=== PATIENT | female | born 1980 | race Caucasian/White ===

== ENCOUNTER → 2023-07-09 16:36 | Outpatient (REF) | payer MEDICARE, OTHER, SELFPAY | LOC: RAD 16:36 | PROVIDERS: ATTENDING PHYSICIAN Nurse Practitioner Family; FAMILY PHYSICIAN Internal Medicine | DX: R19.7 Diarrhea, unspecified (principal) | CPT/HCPCS: 74018 ==

== ENCOUNTER → 2023-08-07 06:29 | Day surgery (SDC) | payer MEDICARE, OTHER, SELFPAY | LOC: GI 06:29 | PROVIDERS: ATTENDING PHYSICIAN Internal Medicine Gastroenterology | DX: R19.7 Diarrhea, unspecified (principal); G89.29 Other chronic pain; K64.8 Other hemorrhoids; K62.3 Rectal prolapse; K52.831 Collagenous colitis | CPT/HCPCS: 45380; 88305; 88313 ==

== ENCOUNTER 2024-06-17 06:02 | Inpatient (IN) | payer MEDICARE, OTHER, SELFPAY ==
[2024-06-02 11:20] LABS: Hematocrit 39.9 % (37.0-47.0); Hemoglobin 13.7 g/dL (12.0-16.0); Mean Corp Hgb Conc. 34.3 g/dL (33.0-37.0); Mean Corpuscular Hgb 29.6 pg (27.0-31.0); Mean Corpuscular Volume 86.2 fL (81.0-99.0); Mean Platelet Volume 10.3 fL (7.4-10.4); Platelet Count 274 10^3/uL (130-400); Red Blood Cell Count 4.63 10^6/uL (4.20-5.40); Red Cell Dist. Width 13.3 % (11.5-14.5); White Blood Cell Count 7.4 10^3/uL (4.8-10.8)
[2024-06-02 11:31] LABS: APTT 28.8 Sec (23.4-35.0); INR 0.91; PT 12.8 Sec (11.4-14.6)
[2024-06-02 12:31] LABS: Glycohemoglobin (HgbA1c) 5.8 % (4.0-5.6)
[2024-06-02 13:45] VITALS: BMI 33.3
[2024-06-02 15:04] LABS: ALT (SGPT) 21 U/L (0-35); AST (SGOT) 28 U/L (14-36); Albumin 4.7 g/dl (3.5-5.0); Alkaline Phosphatase 71 U/L (38-126); Blood Urea Nitrogen 8 mg/dl (7-17); Calcium 9.1 mg/dl (8.4-10.2); Carbon Dioxide 25 mmol/L (22-30); Chloride 100 mmol/L (98-107); Estimated Creatinine Clearance 91 ml/min; Glucose 94 mg/dl (70-99); Sodium 139 mmol/L (135-145); Total Bilirubin 0.6 mg/dl (0.2-1.3); Total Protein 6.8 g/dl (6.3-8.2); eGFR > 60.00
[2024-06-17] VITALS (17 sets, daily range): BP systolic 136–178; BP diastolic 88–119; BMI 33.3
[2024-06-17] MEDS: HEPARIN 5000 UNITS SC (06:45)
[2024-06-17] MEDS: TYLENOL 1000 MG PO (06:45)
--- NOTE | 2024-06-17 10:44 | W.IMMPOSTOP ---
Surgical Immed Post Op Note
-
Primary Surgeon: Karlo Aguilar MD
Director It Project: INDIANA Dorado
Pre-op Diagnosis: Recurrent rectal prolapse
Post-op Diagnosis: Same
Procedure Performed: Robotic ventral mesh rectopexy
Anesthesia Type: GET
Specimen / Cultures: None
Estimated Blood Loss: 10cc
Complications: None
Operative Findings: Rectal prolapse
10 x 3 cm Phasix mesh
Normal flex sig at completion
Patient's boyfriend, Lesley, updated.
[2024-06-17] MEDS: SUBLIMAZE 50 MCG IV ×2 (11:31→11:47)
[2024-06-17] MEDS: TORADOL 15 MG IV ×2 (11:46→17:15)
--- NOTE | 2024-06-17 12:42 | PTCARENOTE ---
Patient admitted from PACU post robotic mesh rectopexy .She reports her pain at an 8 out of 10. Patient received pain medication in PACU both Fentanyl and Toradol.She suffers with chronic pain. Vital signs are stable.All 5 laparoscopic sites are
intact without any drainage.The patient is anxious asking how long she will be alone.I explained to her all she needs to do is use her call tanner which is in reach.The patient is in her bed.
[2024-06-17] MEDS: TYLENOL PO ×2 (15:20→15:25)
[2024-06-17] MEDS: NORMOSOL-R/PLASMALYTE-A 1000 IV ×2 (15:22→15:58)
[2024-06-17] MEDS: DILAUDID 1 MG IV (15:25)
[2024-06-17] MEDS: ADDERALL 20 MG PO (17:15)
[2024-06-17] MEDS: ZOFRAN 4 MG IV (17:16)
[2024-06-17] MEDS: TYLENOL 650 MG PO (20:47)
[2024-06-17] MEDS: ABILIFY 15 MG PO (22:37)
[2024-06-17] MEDS: LUVOX 200 MG PO (22:37)
[2024-06-17] MEDS: ADDERALL PO (22:55)
--- NOTE | 2024-06-18 | PTCARENOTE ---
Pt BP running high. Pt not symptomatic. MATRI Cheema notified and came to floor to assess pt and advised to continue to monitor.
[2024-06-18] MEDS: TYLENOL 650 MG PO ×4 (00:31→21:43)
[2024-06-18] MEDS: TORADOL 15 MG IV ×4 (00:31→16:58)
[2024-06-18] MEDS: ZOFRAN 4 MG IV ×2 (00:59→10:11)
[2024-06-18] MEDS: NORMOSOL-R/PLASMALYTE-A 1000 IV (01:53)
[2024-06-18 03:38] VITALS: BP 178/118
[2024-06-18] MEDS: TYLENOL PO ×2 (04:44→11:46)
[2024-06-18 06:00] VITALS: BMI 33.5
[2024-06-18 06:22] LABS: % Basophils 0.1 % (0-2); % Immature Granulocytes 0.4 % (0-0.5); % Lymphocytes 7.6 % (20.5-51.1); % Neutrophils 87.9 % (42.2-75.2); Absolute Lymphocytes 0.8 10^3/uL (1.2-3.4); Absolute Monocytes 0.4 10^3/uL (0.1-0.6); Absolute Neutrophils 9.5 10^3/uL (1.4-6.5); Hematocrit 38.4 % (37.0-47.0); Hemoglobin 13.7 g/dL (12.0-16.0); Mean Corp Hgb Conc. 35.7 g/dL (33.0-37.0); Mean Platelet Volume 10.4 fL (7.4-10.4); Nucleated Red Blood Cells % 0 %; Platelet Count 287 10^3/uL (130-400); Red Blood Cell Count 4.57 10^6/uL (4.20-5.40); Red Cell Dist. Width 12.6 % (11.5-14.5); White Blood Cell Count 10.8 10^3/uL (4.8-10.8)
[2024-06-18 06:41] LABS: Blood Urea Nitrogen 10 mg/dl (7-17); Calcium 8.7 mg/dl (8.4-10.2); Carbon Dioxide 25 mmol/L (22-30); Chloride 97 mmol/L (98-107); Estimated Creatinine Clearance 117 ml/min; Glucose 164 mg/dl (70-99); Potassium 4.1 mmol/L (3.5-5.1); Sodium 133 mmol/L (135-145); eGFR > 60.00
[2024-06-18 08:05] VITALS: BP 160/99
[2024-06-18] MEDS: PROTONIX 40 MG PO (09:56)
[2024-06-18] MEDS: ADDERALL 20 MG PO ×2 (09:56→16:55)
[2024-06-18] MEDS: NORMOSOL-R/PLASMALYTE-A IV ×2 (09:56→16:56)
[2024-06-18] MEDS: LUVOX 100 MG PO (09:56)
--- NOTE | 2024-06-18 10:04 | W.PN.CRS1 ---
Today's Communication / Plan
-
Regular diet
DC Bass
Possible discharge later today
Assessment/Plan
-
POD#1 Robotic ventral mesh rectopexy
-Labs and vitals normal
-Regular diet
-DC IV fluids and tolerating a diet
-Discontinue Bass
-Lovenox for DVT prophylaxis. Teds and SCDs in place.
-Pain control: Tylenol and Toradol standing, Dilaudid as needed
-Possible discharge later today if tolerating diet. Discussed with patient. Will check in later.
Subjective Data
Procedure
06/17/24- Robotic ventral mesh rectopexy
Subjective Data
Date of Service: June 18, 2024
Patient states she is nauseous. She denies vomiting. She is not having gas or bowel movement yet. She is in a some pain this morning.
Objective Data
-
Vital Signs
Temp Pulse Resp BP Pulse Ox
98.6 F 84 16 160/99 95
06/18/24 08:05 06/18/24 08:05 06/18/24 08:05 06/18/24 08:05 06/18/24 08:05
Intake & Output
06/17/24 06/18/24 06/19/24
06:59 06:59 06:59
Intake Total 4650 / 4650 490 / 490
Output Total 4200 / 4200
Balance 450 / 450 490 / 490
Intake:
Oral fluids 2400 / 2400 240 / 240
IV fluids (Total) 2250 / 2250 250 / 250
Normosal 400 / 400
Output:
Urine, Bass 4200 / 4200
Lab Results
06/18/24 05:53
06/18/24 05:53
Physical Exam
-
General: No Acute Distress and AOx3
Abdomen: Soft, Non Distended and Non Tender
Skin: Warm and Dry
Incision: Clear, Dry, Intact
--- NOTE | 2024-06-18 10:13 | CM ---
Addendum entered by Kia Kenyon RN 06/18/24 15:53:
IMM reviewed.
Original Note:
Reviewed the chart notes and spoke with the patient at the bedside. The patient resides with her mother in a two story home with a flight of steps plus three to enter. The patient reports no DME/VN/SNF in the past. The patient confirmed her
pharmacy of choice is the [facility]. CM continues to be available to patient/family and is monitoring medical plan for needs at discharge.
Plan: Discharge to home when medically stable. No needs anticipated at this time.
[2024-06-18 11:20] VITALS: BP 180/127
--- NOTE | 2024-06-18 12:00 | PTCARENOTE ---
Updated PA in regards to patients hypertension, continued nausea and inability to eat breakfast through tiger text
--- NOTE | 2024-06-18 14:34 | PTCARENOTE ---
Patient still feeling nauseous and was not able to eat breakfast or lunch. IV zofran not working, but IV compazine has been ordered. Pt refusing to go back on IVF. PA made aware
[2024-06-18] MEDS: ROXICODONE 10 MG PO ×2 (14:37→19:45)
[2024-06-18 15:40] VITALS: BP 172/112
[2024-06-18] MEDS: LOVENOX 40 MG SC (16:57)
[2024-06-18] MEDS: ABILIFY 15 MG PO (21:43)
[2024-06-18] MEDS: LUVOX 200 MG PO (21:43)
[2024-06-18] MEDS: ADDERALL PO (21:49)
[2024-06-18] MEDS: TORADOL IV (22:43)
[2024-06-18 23:00] VITALS: BP 143/100
[2024-06-19] MEDS: TYLENOL PO ×3 (00:05→04:49)
[2024-06-19] MEDS: TUMS CHEWABLE TABLET 200 MG PO (04:47)
[2024-06-19] MEDS: TORADOL IV ×2 (04:56→12:39)
[2024-06-19 06:00] VITALS: BMI 32.0
[2024-06-19] MEDS: TYLENOL 650 MG PO ×3 (08:17→16:19)
[2024-06-19] MEDS: ATIVAN 1 MG PO (08:18)
[2024-06-19] MEDS: PROTONIX 40 MG PO (08:18)
[2024-06-19] MEDS: ADDERALL 20 MG PO ×2 (08:19→16:19)
[2024-06-19] MEDS: LUVOX 100 MG PO (08:19)
[2024-06-19 08:36] VITALS: BP 165/100
[2024-06-19 09:35] LABS: % Basophils 0.1 % (0-2); % Immature Granulocytes 0.4 % (0-0.5); % Neutrophils 70.5 % (42.2-75.2); Absolute Monocytes 0.6 10^3/uL (0.1-0.6); Absolute Neutrophils 6.4 10^3/uL (1.4-6.5); Hematocrit 41.7 % (37.0-47.0); Hemoglobin 14.3 g/dL (12.0-16.0); Mean Corp Hgb Conc. 34.3 g/dL (33.0-37.0); Mean Corpuscular Volume 84.6 fL (81.0-99.0); Mean Platelet Volume 10.2 fL (7.4-10.4); Nucleated Red Blood Cells % 0 %; Platelet Count 287 10^3/uL (130-400); Red Blood Cell Count 4.93 10^6/uL (4.20-5.40); Red Cell Dist. Width 12.7 % (11.5-14.5); White Blood Cell Count 9.1 10^3/uL (4.8-10.8)
[2024-06-19 09:52] LABS: Blood Urea Nitrogen 9 mg/dl (7-17); Calcium 9.2 mg/dl (8.4-10.2); Carbon Dioxide 28 mmol/L (22-30); Chloride 97 mmol/L (98-107); Estimated Creatinine Clearance 100 ml/min; Glucose 111 mg/dl (70-99); Potassium 3.9 mmol/L (3.5-5.1); Sodium 134 mmol/L (135-145); eGFR > 60.00
--- NOTE | 2024-06-19 12:41 | W.PN.CRS1 ---
Today's Communication / Plan
-
[facility].
Hospitalist consult.
Assessment/Plan
-
POD 1.
1. tolerated clears. Go to [facility].
2. vitals/labs fine.
3. elevated BP. Hospitalist consult put in.
4. anticipating discharge today or tomorrow.
Subjective Data
Procedure
06/17/24- Robotic ventral mesh rectopexy
Subjective Data
Date of Service: June 19, 2024
Nausea earlier is gone.
Tolerated clears.
Objective Data
-
Vital Signs
Temp Pulse Resp BP Pulse Ox
98 F 85 18 165/100 98
06/19/24 08:36 06/19/24 08:36 06/19/24 08:36 06/19/24 08:36 06/19/24 08:36
Intake & Output
06/18/24 06/19/24 06/20/24
06:59 06:59 06:59
Intake Total 4650 / 4650 4290 / 4290
Output Total 4200 / 4200 1000 / 1000
Balance 450 / 450 3290 / 3290
Intake:
Oral fluids 2400 / 2400 4040 / 4040
IV fluids (Total) 2250 / 2250 250 / 250
Normosal 400 / 400
Output:
Urine, Bass 4200 / 4200 1000 / 1000
Other:
Number of approximated SMALL 3
amounts of urine
Number of approximated MODERATE 2
amounts of urine
Number of approximated LARGE 1
amounts of urine
Lab Results
06/19/24 09:24
06/19/24 09:24
Physical Exam
-
General: No Acute Distress
Chest: Clear
Cardiovascular: Regular Rate & Rhythm
Abdomen: Distended (mild) and Tender (mild incisional)
Incision: Clear, Dry, Intact and No Skin Erythema
--- NOTE | 2024-06-19 12:42 | CON.HOSP ---
Addendum entered and electronically signed by Andrew Kwong MD 06/19/24 16:00:
BP improved since 5 mg Amlodipine start, 132/100 down from 165/120
Patient reports ambulating without issues denies lightheadedness dizziness.
EKG done due to concerns palpitations noted S1Q3T3 and RBBB however these findings are noted knew present October 2020 when patient has had neg CT chest PE study
Stable respiratory status on room air. Patient eager to go home.
Ok from hospitalist perspective to go home. Recommend:
-continuing Amlodipine 5 mg daily
-keeping a daily log of blood pressures at home (patient reports having a portable bp machine at home that she can use)
-reviewing log with primary care provider in 1 week follow up for further evaluation/treatment hypertension
-patient is also recommended to bring her BP machine in follow up to compare her readings with readings obtained in pcp office.
Original Note:
Family Physician
-
Family Physician: Eloy Huynh
Chief Complaint
-
Hypertensive Urgency
History of Present Illness
43F GERD Obesity IBS Fibromyalgia chronic back pain anxiety depression OCD here for rectal prolapsy s/p ventral rectopexy. Hospital stay notable for hypertensive urgency, patient denies hx hypertension denies ever being on bp medications before. In
no acute distress, sitting up comfortably in bed. Denies headache lightheadedness. Reports pain well controlled at this time. Also reports some anxiety with regards to her high blood pressure- had taken her prn ativan earlier thinking it would
help but no significant improvement in BP was noted. Hospitalist consulted for BP evaluation/treatment.
Medical History
Allergies / Home Medications
Allergies reflects when Allergies were last updated in [employer].
Home Medications with original date entered in [employer]
Allergy/Medication List:
Allergies
Allergy/AdvReac Type Severity Reaction Status Date / Time
gabapentin Allergy numbness Verified 06/17/24 06:27
of
fingertip
nortriptyline Allergy elevated Verified 06/17/24 06:27
blood
pressure
prednisone [Prednisone] Allergy psychosis Verified 06/17/24 06:27
Home Medications
Adderall 5 Mg Tablet 20 mg PO TID 06/30/08
Norethindrone 5 mg PO DAILY 06/30/08
esomeprazole magnesium 40 mg granules delayed release for susp (Nexium Packet) 40 mg PO DAILY 06/30/08
fluvoxamine 50 mg tablet 100 mg PO DAILY 01/14/09
Pre Biotic 1 dose PO DAILY 06/10/24
Pro Biotic 1 dose PO DAILY 06/10/24
aripiprazole 15 mg tablet (Abilify) 15 mg PO HS 06/10/24
fluticasone propionate 50 mcg/actuation nasal spray,suspension 2 spray intranasal DAILY 06/10/24
fluvoxamine 100 mg tablet 200 mg PO HS 06/10/24
lorazepam 1 mg tablet 1 mg PO DAILY PRN anxiety 06/10/24
multivitamin 1 tab PO DAILY 06/10/24
oxycodone-acetaminophen 10 mg-325 mg tablet (Percocet) 1 tab PO QID PRN pain 06/10/24
polyethylene glycol 3350 17 gram oral powder packet (Miralax) 17 g PO DAILY 06/10/24
Physical Exam
Vital Signs
Vital Signs
Temp Pulse Resp BP Pulse Ox
98 F 85 18 165/100 98
06/19/24 08:36 06/19/24 08:36 06/19/24 08:36 06/19/24 08:36 06/19/24 08:36
Laboratory Results
-
Laboratory Results
06/19/24 09:24
06/19/24 09:24
PT 12.8 Sec (11.4-14.6) 06/02/24 08:50
INR 0.91 06/02/24 08:50
APTT 28.8 Sec (23.4-35.0) 06/02/24 08:50
Total Bilirubin 0.6 mg/dl (0.2-1.3) 06/02/24 08:50
AST 28 U/L (14-36) 06/02/24 08:50
ALT 21 U/L (0-35) 06/02/24 08:50
Alkaline Phosphatase 71 U/L (38-126) 06/02/24 08:50
Impression / Plan
-
ROS
General: Denies fever chills night sweats unexpected weight loss
Neuro: Denies seizure shaking loss of consciousness dizziness vertigo
Psych: denies depression hallucinations confusion manic episodes
Endocrine: Denies polyuria polydipsia polyphagia heat/cold intolerance
HEENT: Denies blindness visual disturbances epistaxis
Pulmonary: denies coughing hemoptysis sneezing sob dyspnea on exertion
Cardiovascular: reports palpitations denies chest pain leg swelling
Hematology: denies signs symptoms of anemia easy bruising/bleeding
Gastrointestinal: denies nausea vomiting diarrhea constipation hematemesis hematochezia melena
Genito-Urinary: denies retention incontinence dysuria
Musculoskeletal: denies joint pain weakness
Dermatology: denies rash laceration bruising
Physical Exam
General: No pallor, cyanosis, or jaundice.
HEENT: Throat clear. PERRLA Normocephalic atraumatic
NECK: Supple. No JVD Carotid Bruits
RESPIRATORY: Lungs clear to auscultation. No crackles wheezes stridor
CVS: S1, S2 sinus tachy. No murmur, rub or gallop.
ABDOMEN: Soft, non-tender. No distension. BS+/normal.
EXTREMITIES: No peripheral cyanosis or edema.
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
IMPRESSION:
43F GERD Obesity IBS Fibromyalgia chronic back pain ADHD anxiety depression OCD here for rectal prolapsy s/p ventral rectopexy. Hospital stay notable for hypertensive urgency, patient denies hx hypertension denies ever being on bp medications
before. Relatively asymptomatic with regards to high blood pressure, denies headache lightheadedness blurry vision nausea. Hospitalist consulted for BP evaluation/treatment.
PLAN:
#Rectal Prolapse s/p ventral rectopexy
Post-op mgmt pain control as per CRS primary
#HTN
#palpitations, mild sinus tachy
check EKG
start amlodipine 5 mg daily with holding parameters SBP<140
trend bp
Potentially may be discharge later today if BP improves, outpt follow up with pcp for further evaluation/work up/treatment hypertension
Would hold discharge till morning for further BP mgmt if no improvement noted
ADHD
Anxiety
Depression OCD
Fibromyalgia
cont home Adderall Abilify Fluvoxamine prn ativan
DVT ppx SCD
Full Code
discussed with patient, RN, and CRS
I spent a total of 75 minutes with the patient or on the floor. More than 50% of this time involved counseling and coordination of care.
[2024-06-19] MEDS: NORVASC 5 MG PO (12:48)
[2024-06-19 14:44] VITALS: BP 132/100
[2024-06-19] MEDS: ROXICODONE 10 MG PO (16:18)
[2024-06-19 17:44] VITALS: BP 130/90
== END 2024-06-19 18:30 | disposition home or self-care (01) | DRG 331 ==
LOC: 2 SOUTH 06:02
PROVIDERS: Physician Assistant; ADMITTING PHYSICIAN Surgery; CONSULT PHYSICIAN Internal Medicine; FAMILY PHYSICIAN Internal Medicine
PROC: 0DSP0ZZ Reposition Rectum, Open Approach (ICD-10-PCS; 2024-06-17)
PROC: 0DU Gastrointestinal System, Supplement (ICD-10-PCS; 2024-06-17)
PROC: 8E0W0CZ Robotic Assisted Procedure of Trunk Region, Open Approach (ICD-10-PCS; 2024-06-17)
DX: K62.3 Rectal prolapse (principal); I16.0 Hypertensive urgency; I10 Essential (primary) hypertension; F90.9 Attention-deficit hyperactivity disorder, unspecified type; F41.9 Anxiety disorder, unspecified; F42.9 Obsessive-compulsive disorder, unspecified; M79.7 Fibromyalgia; F32.A Depression, unspecified; K21.9 Gastro-esophageal reflux disease without esophagitis; K58.9 Irritable bowel syndrome, unspecified; E66.9 Obesity, unspecified; Z68.32 Body mass index [BMI] 32.0-32.9, adult
CPT/HCPCS: 36415; 80048; 80053; 83036; 85025; 85027; 85610; 85730; 86850; 86900; 86901; 93005; C1781; J1335

== ENCOUNTER → 2024-06-30 19:17 | Outpatient (REF) | payer MEDICARE, OTHER, SELFPAY | LOC: MRI 19:17 | PROVIDERS: ATTENDING PHYSICIAN Physician Assistant Medical; FAMILY PHYSICIAN Internal Medicine | DX: M54.16 Radiculopathy, lumbar region (principal) | CPT/HCPCS: 72148 ==

== ENCOUNTER → 2024-07-01 16:10 | Outpatient (REF) | payer MEDICARE, OTHER, SELFPAY | LOC: HWRAD 16:10 | PROVIDERS: ATTENDING PHYSICIAN Surgery; FAMILY PHYSICIAN Internal Medicine | DX: K59.00 Constipation, unspecified (principal) | CPT/HCPCS: 74019 ==

== ENCOUNTER 2024-10-06 06:28 | Inpatient (IN) | payer MEDICARE, OTHER, SELFPAY ==
[2024-09-24 11:08] LABS: Hematocrit 37.8 % (37.0-47.0); Hemoglobin 12.9 g/dL (12.0-16.0); Mean Corp Hgb Conc. 34.1 g/dL (33.0-37.0); Mean Corpuscular Hgb 29.9 pg (27.0-31.0); Mean Corpuscular Volume 87.7 fL (81.0-99.0); Mean Platelet Volume 9.8 fL (7.4-10.4); Platelet Count 325 10^3/uL (130-400); Red Blood Cell Count 4.31 10^6/uL (4.20-5.40); Red Cell Dist. Width 13.2 % (11.5-14.5); White Blood Cell Count 9.6 10^3/uL (4.8-10.8)
[2024-09-24 11:28] LABS: ALT (SGPT) 26 U/L (0-35); AST (SGOT) 22 U/L (14-36); Albumin 4.2 g/dl (3.5-5.0); Alkaline Phosphatase 64 U/L (38-126); Blood Urea Nitrogen 7 mg/dl (7-17); Calcium 9.3 mg/dl (8.4-10.2); Carbon Dioxide 30 mmol/L (22-30); Chloride 109 mmol/L (98-107); Glucose 104 mg/dl (70-99); Potassium 4.4 mmol/L (3.5-5.1); Sodium 143 mmol/L (135-145); Total Bilirubin 0.2 mg/dl (0.2-1.3); Total Protein 6.8 g/dl (6.3-8.2); eGFR > 60.00
[2024-09-24 12:56] VITALS: BMI 34.8
[2024-10-06] VITALS (20 sets, daily range): BP systolic 141–166; BP diastolic 91–112; BMI 34.8
[2024-10-06] MEDS: NORMOSOL-R/PLASMALYTE-A 1000 IV ×3 (07:39→14:34)
[2024-10-06] MEDS: TYLENOL 1000 MG PO (07:39)
[2024-10-06] MEDS: ENTEREG 12 MG PO (07:39)
[2024-10-06] MEDS: TRANSDERM-SCOP 1 PATCH TRANSDERM (07:57)
--- NOTE | 2024-10-06 11:34 | W.IMMPOSTOP ---
Surgical Immed Post Op Note
-
Primary Surgeon: Karlo Aguilar MD
Egg Grader: IND[place] Dorado
Pre-op Diagnosis: Recurrent rectal prolapse
Post-op Diagnosis: Same
Procedure Performed: Robotic vental mesh rectopexy
Anesthesia Type: GET
Specimen / Cultures:None
Estimated Blood Loss: 15cc
Complications: None
Operative Findings: Previous mesh tore in half (rectal and sacral promontory sutures and mesh intact)
4 x 8 cm Upsylon mesh
Patient's mother updated via telephone.
[2024-10-06 11:48] LABS: Glucose - Point of Care 143 mg/dl (70-99)
[2024-10-06] MEDS: ZOFRAN 4 MG IV (12:05)
[2024-10-06] MEDS: TORADOL 15 MG IV ×3 (12:18→23:18)
[2024-10-06] MEDS: DILAUDID 0.5 MG IV ×2 (12:35→13:37)
[2024-10-06] MEDS: TRANDATE 5 MG IV (13:52)
--- NOTE | 2024-10-06 14:35 | PTCARENOTE ---
Pt arrived to [facility] from PACU in a bed. Pt has locke with yellow urine. 5 lap sites KADEN with glue. Admission questions answered. IVF hung at 80cc/hr. Pt oriented to room and call tanner. Bed locked and in lowest position. Care ongoing.
[2024-10-06] MEDS: ADDERALL PO ×2 (15:46→21:22)
[2024-10-06] MEDS: TYLENOL 650 MG PO ×3 (15:47→23:18)
[2024-10-06] MEDS: ROXICODONE 10 MG PO ×2 (15:59→20:03)
[2024-10-06] MEDS: ZOLOFT 100 MG PO (17:41)
[2024-10-06] MEDS: TYLENOL PO (19:36)
--- NOTE | 2024-10-06 20:10 | PTCARENOTE ---
Pt c/o chills/feeling warm. Temp is 98.2 orally. BP is 157/110. HR 111. MAP 126. Pt is flushed and warm to touch. 10mg Oxy administered at 2002. Devante Arroyo notified and aware. No new orders at this time. Will continue to monitor.
[2024-10-07] MEDS: NORMOSOL-R/PLASMALYTE-A 1000 IV (01:01)
--- NOTE | 2024-10-07 02:06 | PTCARENOTE ---
Pt c/o 9/10 sharp gas pains. Pt ambulated in hallway. Pain improved to a 4/10 with some belching. Care remains ongoing.
--- NOTE | 2024-10-07 03:15 | PTCARENOTE ---
Pt refusing 0300 vitals.
[2024-10-07] MEDS: TYLENOL 650 MG PO ×5 (03:20→23:04)
[2024-10-07] MEDS: TORADOL IV ×2 (05:23→23:01)
--- NOTE | 2024-10-07 06:06 | PTCARENOTE ---
Pt refusing daily weight.
[2024-10-07 06:39] LABS: % Basophils 0.4 % (0-2); % Eosinophils 0.1 % (0-6); % Immature Granulocytes 0.3 % (0-0.5); % Lymphocytes 8.8 % (20.5-51.1); % Monocytes 6.2 % (1.7-9.3); % Neutrophils 84.2 % (42.2-75.2); Absolute Basophils 0.1 10^3/uL (0-0.2); Absolute Immature Granulocytes 0.1 10^3/uL (0-0.05); Absolute Lymphocytes 1.3 10^3/uL (1.2-3.4); Absolute Monocytes 0.9 10^3/uL (0.1-0.6); Absolute Neutrophils 12.4 10^3/uL (1.4-6.5); Hematocrit 36.9 % (37.0-47.0); Mean Corp Hgb Conc. 35.2 g/dL (33.0-37.0); Mean Corpuscular Hgb 30.2 pg (27.0-31.0); Mean Corpuscular Volume 85.8 fL (81.0-99.0); Mean Platelet Volume 10.3 fL (7.4-10.4); Nucleated Red Blood Cells % 0 %; Platelet Count 346 10^3/uL (130-400); Red Cell Dist. Width 12.7 % (11.5-14.5); White Blood Cell Count 14.8 10^3/uL (4.8-10.8)
[2024-10-07 07:01] LABS: Blood Urea Nitrogen 7 mg/dl (7-17); Calcium 8.6 mg/dl (8.4-10.2); Carbon Dioxide 25 mmol/L (22-30); Chloride 108 mmol/L (98-107); Estimated Creatinine Clearance 120 ml/min; Glucose 107 mg/dl (70-99); Potassium 4.1 mmol/L (3.5-5.1); Sodium 140 mmol/L (135-145); eGFR > 60.00
[2024-10-07 07:30] VITALS: BP 165/109
--- NOTE | 2024-10-07 08:48 | W.PN.CRS1 ---
Today's Communication / Plan
-
fulls
lovenox
d/c locke
Assessment/Plan
-
POD#1 Robotic ventral mesh rectopexy
WBC 14.8, Hgb 13.0
HR 90-110's, afebrile
-Tolerating clears. Advance to fulls. D/C IVFs when tolerating po.
-OOB as tolerated
-D/C locke
-Start lovenox tonight for DVT prophylaxis. TEDS/SCDs in place.
-Pain control: Tylenol/Toradol standing, Dilaudid and Oxycodone PRN
-Daily Miralax
-Incentive spirometry q1h while awake
Subjective Data
Procedure
10/06/2024- Robotic ventral mesh rectopexy
Subjective Data
Date of Service: October 07, 2024
Patient states she is feeling 'uncomfortable'. She has some nausea but no vomiting. No flatus or bowel movements yet.
Objective Data
-
Vital Signs
Temp Pulse Resp BP Pulse Ox
97.7 F 88 18 165/109 95
10/07/24 07:30 10/07/24 07:30 10/07/24 07:30 10/07/24 07:30 10/07/24 07:30
Intake & Output
10/06/24 10/07/24 10/08/24
06:59 06:59 06:59
Intake Total 1420 / 1420
Output Total 1350 / 1350
Balance 70 / 70
Intake:
Oral fluids 1170 / 1170
IV fluids (Total) 250 / 250
normosol 250 / 250
Output:
Urine, Locke 1350 / 1350
Lab Results
10/07/24 05:30
10/07/24 05:30
Physical Exam
-
General: No Acute Distress and AOx3
Abdomen: Soft, Non Distended and Tender (around incisions)
Skin: Warm and Dry
[2024-10-07] MEDS: PROTONIX 40 MG PO (09:56)
[2024-10-07] MEDS: MIRALAX 17 GRAMS PO (09:56)
[2024-10-07] MEDS: ADDERALL 20 MG PO ×2 (09:56→16:34)
[2024-10-07] MEDS: ROXICODONE 10 MG PO ×4 (10:01→23:03)
[2024-10-07 11:20] VITALS: BP 130/96
--- NOTE | 2024-10-07 12:05 | CM ---
CM following re: discharge planning.
Reviewed pt's chart, met with pt.
Pt is a 43 year old female, admitted with primary dx of POD 1 robotic VMR.
Pt reports she lives with boyfriend in an apartment second floor of [facility] [address], 3 steps to enter, has no children. 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 No DME, VN or SNF history.
PCP: Duke Huynh
Pharmacy: [facility]
D/C plan: home with anticipated no needs.
CM will follow with discharge plan updates as hospitalization progresses
[2024-10-07] MEDS: TORADOL 15 MG IV ×2 (13:03→18:31)
[2024-10-07] MEDS: NORMOSOL-R/PLASMALYTE-A IV (13:32)
[2024-10-07 15:30] VITALS: BP 152/102
[2024-10-07] MEDS: ZOLOFT 100 MG PO (18:32)
--- NOTE | 2024-10-07 19:30 | PTCARENOTE ---
Pt c/o extreme nausea. Pt asked for compazine. Devante Arroyo TEAM SPORTS SALES ASSOCIATE notified. EKG order obtained and completed. QTC prolonged. 6.25mg benadryl ordered and administered. Pt educated on purpose of EKG and QTc measurement. Pt requesting tums.
Ordered and administered. Instructed pt to walk in hallway to try to move gas. Pt belched while walking. Pt has no complaints of nausea post-walk/tums administration. Care remains ongoing.
[2024-10-07] MEDS: BENADRYL 6.25 MG IV (19:42)
[2024-10-07] MEDS: TYLENOL PO (19:46)
[2024-10-07] MEDS: TUMS CHEWABLE TABLET 200 MG PO (19:57)
[2024-10-07] MEDS: ADDERALL PO (21:10)
[2024-10-07 23:31] VITALS: BP 137/95
[2024-10-08] MEDS: NORMOSOL-R/PLASMALYTE-A IV (02:03)
[2024-10-08] MEDS: TYLENOL PO (03:00)
[2024-10-08] MEDS: TORADOL IV ×2 (05:04→12:45)
[2024-10-08 07:25] VITALS: BMI 34.4
[2024-10-08 07:53] VITALS: BP 140/98
[2024-10-08 08:11] LABS: % Basophils 0.8 % (0-2); % Eosinophils 9.8 % (0-6); % Immature Granulocytes 0.5 % (0-0.5); % Lymphocytes 26.6 % (20.5-51.1); % Monocytes 6.9 % (1.7-9.3); % Neutrophils 55.4 % (42.2-75.2); Absolute Basophils 0.1 10^3/uL (0-0.2); Absolute Immature Granulocytes 0.1 10^3/uL (0-0.05); Absolute Lymphocytes 2.8 10^3/uL (1.2-3.4); Absolute Monocytes 0.7 10^3/uL (0.1-0.6); Absolute Neutrophils 5.8 10^3/uL (1.4-6.5); Hematocrit 37.6 % (37.0-47.0); Mean Corp Hgb Conc. 34.6 g/dL (33.0-37.0); Mean Corpuscular Hgb 29.8 pg (27.0-31.0); Mean Corpuscular Volume 86.2 fL (81.0-99.0); Mean Platelet Volume 10.4 fL (7.4-10.4); Nucleated Red Blood Cells % 0 %; Platelet Count 310 10^3/uL (130-400); Red Blood Cell Count 4.36 10^6/uL (4.20-5.40); Red Cell Dist. Width 12.8 % (11.5-14.5); White Blood Cell Count 10.4 10^3/uL (4.8-10.8)
[2024-10-08 08:58] LABS: Blood Urea Nitrogen 6 mg/dl (7-17); Calcium 9.3 mg/dl (8.4-10.2); Carbon Dioxide 24 mmol/L (22-30); Chloride 109 mmol/L (98-107); Estimated Creatinine Clearance 119 ml/min; Glucose 96 mg/dl (70-99); Potassium 4.2 mmol/L (3.5-5.1); Sodium 141 mmol/L (135-145); eGFR > 60.00
[2024-10-08] MEDS: ROXICODONE 10 MG PO (08:58)
[2024-10-08] MEDS: MIRALAX 17 GRAMS PO (08:59)
[2024-10-08] MEDS: PROTONIX 40 MG PO (09:00)
[2024-10-08] MEDS: TYLENOL 650 MG PO ×2 (09:00→12:45)
[2024-10-08] MEDS: ADDERALL 20 MG PO (09:00)
--- NOTE | 2024-10-08 09:21 | W.PN.CRS1 ---
Today's Communication / Plan
-
discharge
Assessment/Plan
-
POD#2 Robotic ventral mesh rectopexy
WBC 10.4, Hgb 13.0
Vitals normal
-Continue low residue
-OOB as tolerated
-voiding post locke removal
-Lovenox for DVT prophylaxis. TEDS/SCDs in place.
-Pain control: Tylenol/Toradol standing, Dilaudid and Oxycodone PRN
-Daily Miralax
-Incentive spirometry q1h while awake
-Okay for discharge today. All discharge instructions discussed with patient including medications, activity levels, and follow up. All questions addressed.
Subjective Data
Procedure
10/06/2024- Robotic ventral mesh rectopexy
Subjective Data
Date of Service: October 08, 2024
Patient states she is feeling well. She is a little sore, but she has no other complaints. Denies nausea or vomiting. She is tolerating a diet.
Objective Data
-
Vital Signs
Temp Pulse Resp BP Pulse Ox
97.8 F 79 18 140/98 96
10/08/24 07:53 10/08/24 07:53 10/08/24 07:53 10/08/24 07:53 10/08/24 07:53
Intake & Output
10/07/24 10/08/24 10/09/24
06:59 06:59 06:59
Intake Total 1420 / 1420 880 / 880 900 / 900
Output Total 1350 / 1350 450 / 450 500 / 500
Balance 70 / 70 430 / 430 400 / 400
Intake:
Oral fluids 1170 / 1170 880 / 880 600 / 600
IV fluids (Total) 250 / 250 300 / 300
normosol 250 / 250
Output:
Urine, Locke 1350 / 1350 450 / 450
Urine, Voided 500 / 500
Other:
Number of approximated LARGE 1
amounts of urine
Lab Results
10/08/24 07:25
10/08/24 07:25
Physical Exam
-
General: No Acute Distress and AOx3
Abdomen: Soft, Non Distended and Tender (mild around incisions)
Skin: Warm and Dry
--- NOTE | 2024-10-08 10:51 | CM ---
Patient seen at bedside in [address] [place] [address]. Patient stated that she is doing well and plans for discharge today. CM completed IMM and signed form placed on chart. CM will continue to follow for discharge planning needs.
Plan; home with no needs anticipated
[2024-10-08 12:11] VITALS: BP 136/101
== END 2024-10-08 13:02 | disposition home or self-care (01) | DRG 331 ==
LOC: 2 SOUTH 06:28
PROVIDERS: Physician Assistant; ADMITTING PHYSICIAN Surgery; FAMILY PHYSICIAN Internal Medicine
PROC: 0DSP4ZZ Reposition Rectum, Percutaneous Endoscopic Approach (ICD-10-PCS; 2024-10-06)
PROC: 0DUP4JZ Supplement Rectum with Synthetic Substitute, Percutaneous Endoscopic Approach (ICD-10-PCS; 2024-10-06)
PROC: 8E0W4CZ Robotic Assisted Procedure of Trunk Region, Percutaneous Endoscopic Approach (ICD-10-PCS; 2024-10-06)
DX: K62.3 Rectal prolapse (principal)
CPT/HCPCS: 36415; 80048; 80053; 82962; 85025; 85027; 86850; 86900; 86901; 93005; C1763; J1335

== ENCOUNTER → 2025-01-14 14:43 | Outpatient (REF) | payer MEDICARE, OTHER, SELFPAY | LOC: HWWDC 14:43 | PROVIDERS: ATTENDING PHYSICIAN Advanced Practice Midwife; FAMILY PHYSICIAN Internal Medicine | DX: Z12.31 Encounter for screening mammogram for malignant neoplasm of breast (principal) | CPT/HCPCS: 77063; 77067 ==

== ENCOUNTER 2025-03-09 05:47 | Inpatient (IN) | payer MEDICARE, OTHER, SELFPAY ==
[2025-03-01 09:07] LABS: Hematocrit 36.3 % (37.0-47.0); Hemoglobin 12.2 g/dL (12.0-16.0); Mean Corp Hgb Conc. 33.6 g/dL (33.0-37.0); Mean Corpuscular Volume 84.6 fL (81.0-99.0); Platelet Count 251 10^3/uL (130-400); Red Cell Dist. Width 13.1 % (11.5-14.5)
[2025-03-01 09:43] LABS: ALT (SGPT) 18 U/L (0-35); AST (SGOT) 20 U/L (14-36); Albumin 4.4 g/dl (3.5-5.0); Alkaline Phosphatase 58 U/L (38-126); Blood Urea Nitrogen 13 mg/dl (7-17); Calcium 9.5 mg/dl (8.4-10.2); Carbon Dioxide 31 mmol/L (22-30); Chloride 107 mmol/L (98-107); Glucose 96 mg/dl (70-99); Potassium 4.5 mmol/L (3.5-5.1); Sodium 138 mmol/L (135-145); Total Protein 7.1 g/dl (6.3-8.2); eGFR > 60.00
[2025-03-01 13:57] VITALS: BMI 35.6
[2025-03-09] VITALS (37 sets, daily range): BP systolic 121–158; BP diastolic 93–117; BMI 35.6; BMI 35.5
[2025-03-09] MEDS: NORMOSOL-R/PLASMALYTE-A 1000 IV ×2 (06:40→13:39)
--- NOTE | 2025-03-09 10:52 | W.IMMPOSTOP ---
Surgical Immed Post Op Note
-
Primary Surgeon: Karlo Aguilar MD
Urologist: Orville Foreman MD
Assistants: IND[place]NA Dorado and STEPHEN Moya CRNP
Pre-op Diagnosis: Recurrent rectal prolapse
Post-op Diagnosis: Same
Procedure Performed: Cystoscopy with ureteral stents and ICG
Robotic ventral mesh rectopexy and suture rectopexy
Anesthesia Type: GET
Specimen / Cultures: None
Estimated Blood Loss: 14cc
Complications: None
Operative Findings: Recurrent full-thickness rectal prolapse
Normal flexible sigmoidoscopy
Both ureteral stents removed at the completion (intact)
Patient's mother updated via telephone.
[2025-03-09] MEDS: DILAUDID 0.5 MG IV (12:27)
[2025-03-09] MEDS: DILAUDID 0.25 MG IV (12:49)
[2025-03-09] MEDS: TYLENOL 650 MG PO ×2 (14:11→18:19)
[2025-03-09] MEDS: ZOLOFT 200 MG PO (18:19)
[2025-03-09] MEDS: ROXICODONE 10 MG PO (18:21)
[2025-03-09] MEDS: ABILIFY 15 MG PO (18:46)
[2025-03-09] MEDS: ROXICODONE 5 MG PO (19:30)
[2025-03-09] MEDS: ZOFRAN 4 MG IV (21:06)
[2025-03-09] MEDS: ADDERALL PO ×2 (21:06→21:13)
[2025-03-09] MEDS: TUMS CHEWABLE TABLET 200 MG PO (21:33)
[2025-03-09] MEDS: TYLENOL PO (22:26)
[2025-03-10] MEDS: NORMOSOL-R/PLASMALYTE-A 1000 IV (00:27)
[2025-03-10] MEDS: TYLENOL PO ×3 (00:29→15:00)
[2025-03-10 06:00] VITALS: BMI 34.4
[2025-03-10 06:59] LABS: Hematocrit 38.3 % (37.0-47.0); Hemoglobin 13.0 g/dL (12.0-16.0); Mean Corp Hgb Conc. 33.9 g/dL (33.0-37.0); Mean Corpuscular Volume 84.9 fL (81.0-99.0); Nucleated Red Blood Cells % 0 %; Platelet Count 287 10^3/uL (130-400); Red Cell Dist. Width 12.7 % (11.5-14.5)
[2025-03-10 07:14] LABS: Blood Urea Nitrogen 6 mg/dl (7-17); Calcium 9.0 mg/dl (8.4-10.2); Carbon Dioxide 25 mmol/L (22-30); Chloride 106 mmol/L (98-107); Estimated Creatinine Clearance 118 ml/min; Glucose 93 mg/dl (70-99); Potassium 4.4 mmol/L (3.5-5.1); Sodium 134 mmol/L (135-145); eGFR > 60.00
[2025-03-10] MEDS: TYLENOL 650 MG PO ×2 (07:38→15:15)
[2025-03-10] MEDS: ROXICODONE 10 MG PO ×2 (07:38→15:14)
[2025-03-10] MEDS: ADDERALL 20 MG PO (07:41)
[2025-03-10] MEDS: PROTONIX 40 MG PO (07:42)
[2025-03-10 07:50] VITALS: BP 145/99
[2025-03-10] MEDS: ROXICODONE 5 MG PO (08:05)
--- NOTE | 2025-03-10 10:24 | W.PN.CRS1 ---
Today's Communication / Plan
-
regular diet
OOB
lovenox
maalox
hydralazine
possible d/c later today
Assessment/Plan
-
POD#1 Cystoscopy with ureteral stents and ICG, robotic ventral mesh rectopexy and suture rectopexy
Vitals: BP 150's/100's, afebrile
WBC: 11.4, Hgb 13.0
-Advance to a regular diet
-OOB as tolerated
-D/C Locke
-D/C IVFs when tolerating po diet
-Pain control: Tylenol q6 hours standing, Oxycodone/Dilaudid PRN
-Lovenox for DVT prophylaxis. TEDS/SCDS in place.
-Added Maalox for acid reflux
-CM for dispo planning. Possible d/c later today if pain controlled and tolerating a diet/voiding post locke removal.
-Hydralazine 5mg q 6 IV for BP over 140's/100's.
Subjective Data
Procedure
03/09/2025- Cystoscopy with ureteral stents and ICG, robotic ventral mesh rectopexy and suture rectopexy
Subjective Data
Date of Service: March 10, 2025
Patient states she feels well. She has some flatus. She is very hungry. She didn't sleep much last night. She has some soreness, 4-5/10. Denies nasuea or vomiting.
Objective Data
-
Vital Signs
Temp Pulse Resp BP Pulse Ox
98.0 F 108 20 145/99 96
03/10/25 07:50 03/10/25 07:50 03/10/25 07:50 03/10/25 07:50 03/10/25 07:50
Intake & Output
11/12/25 11/13/25 11/14/25
06:59 06:59 06:59
Intake Total 2420 / 2420
Output Total 3350 / 3350
Balance -930 / -930
Intake:
Oral fluids 600 / 600
IV fluids (Total) 1820 / 1820
Normosol 860 / 860
Output:
Urine, Locke 3350 / 3350
Lab Results
03/10/25 06:02
03/10/25 06:02
Physical Exam
-
General: No Acute Distress and AOx3
Abdomen: Soft, Non Distended and Non Tender
Skin: Warm and Dry
Incision: Clear, Dry, Intact
[2025-03-10] MEDS: MAALOX 30 ML PO (11:08)
[2025-03-10] MEDS: APRESOLINE 5 MG IV (11:18)
[2025-03-10 11:27] VITALS: BP 158/97
--- NOTE | 2025-03-10 13:24 | CM ---
CM met with patient at bedside to discuss case management role and discharge planning needs. Patient confirmed she lives with her mother and stepfather in a 2-story house and was independent prior to admission. No hx of home care or DME at home.
Patient does not anticipate having any needs upon discharge. Transportation will be provided by family.
PCP: Dr. Eloy Huynh
[facility]: [facility]
PLAN: Home with family, no needs
[2025-03-10 13:46] VITALS: BP 149/109
[2025-03-10] MEDS: NORMOSOL-R/PLASMALYTE-A IV (13:49)
[2025-03-10 15:24] VITALS: BP 150/99
== END 2025-03-10 15:49 | disposition home or self-care (01) | DRG 331 ==
LOC: 4 WEST ACU 05:47
PROVIDERS: ADMITTING PHYSICIAN Surgery; FAMILY PHYSICIAN Internal Medicine
PROC: 0DSP4ZZ Reposition Rectum, Percutaneous Endoscopic Approach (ICD-10-PCS; 2025-03-09)
PROC: 0DUP4JZ Supplement Rectum with Synthetic Substitute, Percutaneous Endoscopic Approach (ICD-10-PCS; 2025-03-09)
PROC: 8E0W4CZ Robotic Assisted Procedure of Trunk Region, Percutaneous Endoscopic Approach (ICD-10-PCS; 2025-03-09)
DX: K62.3 Rectal prolapse (principal)
CPT/HCPCS: 80048; 80053; 85025; 85027; 86850; 86900; 86901; C1763; J1335